=== PATIENT | male | born 1940 | race Caucasian/White ===

== ENCOUNTER 2020-04-04 19:00 | Inpatient (IN) | payer MEDICARE ==
[~2020-04-04] VITALS: Ht 175.3 cm; Wt 138.9 kg
[2020-04-04] MEDS ORDERED: LACT10SO PO (19:18)
[2020-04-04] MEDS ORDERED: FURO20TA4 PO (19:20)
[2020-04-04] MEDS ORDERED: POTA10CA43 PO (19:20)
[2020-04-04] MEDS ORDERED: HYDR25TA4 PO (19:20)
[2020-04-04] MEDS ORDERED: FUROSEMIDE 40 MG/4 ML VIAL ONE (19:25)
--- NOTE | 2020-04-04 19:25 | NUR ---
PT AAOX4. AMBULATORY WITH STEADY GAIT. BIBFAMILY INTIAL COMPLAIN WAS TESTICULAR PAIN. PER ASSESSMENT BILATERAL LEG SWELLING. MD AT BEDSIDE FOR EVAL. PT PLACED ON MONITOR AND PULSE OX. VSS. NO ACUTE DISTRESS NOTED.
--- NOTE | 2020-04-04 19:26 | NUR ---
PT noted that he has been having bilateral pedal edema which is worsening over the past week. He also stated he noticed scrotal edema today.
--- NOTE | 2020-04-04 19:29 | NUR ---
XRAY AT BEDSIDE
[2020-04-04] MEDS ORDERED: FUROSEMIDE 40 MG/4 ML VIAL IV ONE (19:30)
--- NOTE | 2020-04-04 19:30 | NUR ---
DIRECTOR OF PLACEMENT AT BEDSIDE FOR LABS
--- NOTE | 2020-04-04 19:31 | NUR ---
PT MEDICATED. GIVEN 40MG IV PUSH OF LASIX.
--- NOTE | 2020-04-04 19:34 | NUR ---
COVID SWAB SENT TO LAB
--- NOTE | 2020-04-04 19:35 | NUR ---
PT MED LIST UPDATED.
--- NOTE | 2020-04-04 19:43 | NUR ---
PT ON PHONE WITH FAMILY.
[2020-04-04 19:49] LABS: CALCIUM, SERUM 8.8 mg/dL (8.5-10.1); CARBON DIOXIDE 28 mmol/L (21-32); CHLORIDE 105 mmol/L (98-107); CREATININE 1.1 mg/dL (0.6-1.3); GLUCOSE 116 mg/dL (74-106); POTASSIUM 3.8 mmol/L (3.5-5.1); SODIUM SERUM 140 mmol/L (136-145); UREA NITROGEN, BLOOD 17 mg/dL (7-18)
[2020-04-04 19:50] LABS: BASOPHILS # (AUTO) 0.1 /CMM (0.0-0.2); BASOPHILS % (AUTO) 1.2 % (0.0-2.0); EOSINOPHILS % (AUTO) 3.6 % (0.0-6.0); HEMATOCRIT 43 % (39-51); HEMOGLOBIN 14.9 g/dL (13.5-17.5); LYMPHOCYTES # (AUTO) 0.9 /CMM (0.8-4.8); LYMPHOCYTES % (AUTO) 15.4 % (20.0-44.0); MEAN CORPUSCULAR HGB CONC 35 g/dl (31.0-36.0); MEAN CORPUSCULAR VOLUME 117 fL (80-96); MONOCYTES # (AUTO) 0.9 /CMM (0.1-1.30); MONOCYTES % (AUTO) 14.8 % (2.0-12.0); NEUTROPHILS # (AUTO) 3.8 /CMM (1.8-8.9); PLATELET COUNT (AUTO) 96 /CMM (150-450); RED BLOOD CELL COUNT(AUTO) 3.68 MIL/uL (4.5-6.0); WHITE BLOOD COUNT (AUTO) 5.9 K/uL (4.3-11.0)
--- NOTE | 2020-04-04 19:55 | NUR ---
PT AMBULATED TO THE RESTROOM.
[2020-04-04 20:01] LABS: ALANINE AMINOTRANSFERASE 65 U/L (12-78); ALBUMIN 2.1 g/dL (3.4-5.0); ALKALINE PHOSPHATASE 359 U/L (46-116); ASPARTATE AMINOTRANSFERASE 111 U/L (15-37); B-TYPE NATRIURETIC PEPTIDE 48 PG/ML (0-125); BILIRUBIN,DIRECT 3.1 mg/dL (0.0-0.2); BILIRUBIN,TOTAL 5.4 mg/dL (0.2-1.0); TOTAL PROTEIN, SERUM 5.9 g/dL (6.4-8.2)
[2020-04-04 20:34] LABS: BAND % (MANUAL) 2 % (0.0-5.0); EOSINOPHILS % (MANUAL) 1 % (0-4); LYMPHOCYTES % (MANUAL) 9 % (16-48); MONOCYTES % (MANUAL) 8 % (0-11.0); NEUTROPHILS % (MANUAL) 80 (42-76)
--- NOTE | 2020-04-04 20:49 | NUR ---
DR. FANG SPEAKING WITH HOSPITALIST DANIEL MANUEL, DNP
--- NOTE | 2020-04-04 20:50 | NUR ---
ORDERED URINE. URINE SENT TO LAB.
--- NOTE | 2020-04-04 21:04 | NUR ---
BED ASSIGNMENT 325-2
--- NOTE | 2020-04-04 21:15 | NUR ---
MRSA ORDER PLACED.
--- NOTE | 2020-04-04 21:16 | NUR ---
REPORT GIVEN TO WON TEE FOR GORDO
--- NOTE | 2020-04-04 21:18 | NUR ---
PT TRANSFERED TO BED 325-2.
[2020-04-04 21:30] VITALS: BP 158/77
--- NOTE | 2020-04-04 21:30 | NUR ---
MS CIRCULATING NURSE NOTES PATIENT ADMITTED TO UNIT FOR FLUID OVERLOAD. TRANSFERRED VIA GURNEY; ABLE TO AMBULATE INDEPENDENTLY. STABLE ON RA. PATIENT DENIES SOB OR PAIN. IV PRESENT ON LEFT AC, SIZE 18, INTACT & PATENT. EDEMA NOTED ON BILATERAL LEGS AND FEET; PATIENT STATES HE NOTICED SWELLING IN HIS TESTICLES THIS MORNING. PATIENT REFUSED SKIN ASSESSMENT OF PERINEAL AREA; PHOTOS TAKEN OF B/L LEGS AND FEET ONLY. BELONGINGS LIST REVIEWED WITH PATIENT AND PLACED IN CHART. ADMISSION ORDERS PLACED BY DANIEL MANUEL. SAFETY MEASURES IN PLACE AND PATIENT'S NEEDS MET. WILL CONTINUE TO MONITOR.
[2020-04-04 21:40] VITALS: BP 158/77
--- NOTE | 2020-04-04 21:50 | NUR ---
MS RN NOTES PATIENT SENT TO RADIOLOGY FOR CT SCAN OF ABDOMEN
[2020-04-04 21:53] LABS: APPEARANCE,URINE CLEAR (CLEAR); BILIRUBIN,URINE NEGATIVE (NEGATIVE); BLOOD, URINE NEGATIVE Ery/uL (NEGATIVE); COLOR,URINE YELLOW (YELLOW); KETONES,URINE NEGATIVE (NEGATIVE); LEUKOCYTE ESTERASE ,URINE NEGATIVE (NEGATIVE); NITRITE, URINE NEGATIVE (NEGATIVE); PROTEIN,URINE NEGATIVE (NEGATIVE); UGLUCOSE NEGATIVE (NEGATIVE); UROBILINOGEN,URINE 0.2 EU/dL (0.2)
[2020-04-04] MEDS ORDERED: ALBUMIN 25% 12.5 GM/50 ML BOTTLE IV STA (21:56)
[2020-04-04] MEDS ORDERED: BUMETANIDE INJ 8 MG in IV NS 0.9% 48 ML IV ONE (22:00)
[2020-04-04] MEDS ORDERED: MAGNESIUM HYDROXIDE 30 ML UDC PO PRN (22:00)
[2020-04-04] MEDS ORDERED: Z GUARD REMEDY 2 OZ OINT TP PRN (22:00)
[2020-04-04] MEDS ORDERED: MAG HYDROX/AL HYDROX/SIMETH 30 ML UDC PO PRN (22:00)
[2020-04-04] MEDS ORDERED: POTASSIUM CHLORIDE 20 MEQ TAB.PRT.SR PO ONE (22:00)
[2020-04-04] MEDS ORDERED: ZOLPIDEM TARTRATE 5 MG TABLET PO PRN (22:00)
[2020-04-04] MEDS ORDERED: HYDROCODONE/APAP 5/325MG 1 EACH TABLET PO PRN (22:00)
[2020-04-04] MEDS ORDERED: ACETAMINOPHEN 325 MG TABLET PO PRN (22:00)
[2020-04-04] MEDS ORDERED: ONDANSETRON HCL/PF 4 MG/2 ML VIAL IVP PRN (22:00)
[2020-04-04] MEDS ORDERED: LACTULOSE 10 G/15 ML UDC (PYXIS) PO PRN (22:00)
--- NOTE | 2020-04-04 22:10 | NUR ---
MS RN NOTES SCHEDULED ALBUMIN IV NOT IN STOCK ON UNIT. AWAITING FOR NURSING INVESTIGATIVE REPORTER TO RETRIEVE MEDICATION IN NIGHT LOCKER.
[2020-04-04 22:11] LABS: CREATININE, URINE 46.4 MG/DL (30.0-125.0); URINE TOTAL PROTEIN 3.6 mg/dL (0-11.9)
[2020-04-04] MEDS ORDERED: ALBUMIN 25% 200 ML IV ONE (22:16)
[2020-04-04] MEDS: RIFAXIMIN 550 MG TABLET PO SCH (22:45)
[2020-04-04] MEDS: SPIRONOLACTONE 25 MG TABLET PO SCH (22:45)
[2020-04-04] MEDS ORDERED: BUMETANIDE INJ 0.25 MG/ML VIAL ONE ×2 (22:59→23:04)
--- NOTE | 2020-04-04 23:00 | NUR ---
MS RN NOTES ALBUMIN BOLUS X 4 BOTTLES COMPLETED. BUMEX 8MG IV RETRIEVED BY CHARGE NURSE FROM [facility]. MANUAL BARCODE UTILIZED TO SCAN THROUGH EMAR.
--- NOTE | 2020-04-05 07:08 | NUR ---
MS RN OPENING NOTES RECEIVED PATIENT AWAKE IN BED. AOX4. NO SOB NOTED, NO C/O PAIN AT THIS TIME. NO S/S OF ANY ACUTE RESPIRATORY DISTRESS; BREATHING IS EVEN AND UNLABORED. PT ABLE TO MAKE NEEDS KNOWN. IV ACCESS IN LAC G#18, INTACT AND PATENT. SAFETY PRECAUTIONS IN PLACE. PT REFUSED NURSE FROM ASSESSING TESTICULAR SWELLING. SAFETY PRECAUTIONS IN PLACE. BED IN LOWEST LOCKED POSITION, BED ALARM ALARM ON, SIDE RAILS, CALL LIGHT WITHIN REACH. WILL CONTINUE TO MONITOR.
[2020-04-05 07:36] LABS: BASOPHILS # (AUTO) 0.1 /CMM (0.0-0.2); BASOPHILS % (AUTO) 1.4 % (0.0-2.0); EOSINOPHILS % (AUTO) 5.4 % (0.0-6.0); HEMATOCRIT 39 % (39-51); LYMPHOCYTES # (AUTO) 1.1 /CMM (0.8-4.8); LYMPHOCYTES % (AUTO) 22.2 % (20.0-44.0); MEAN CORPUSCULAR HGB CONC 34 g/dl (31.0-36.0); MEAN CORPUSCULAR VOLUME 117 fL (80-96); MONOCYTES # (AUTO) 0.7 /CMM (0.1-1.30); MONOCYTES % (AUTO) 14.5 % (2.0-12.0); NEUTROPHILS # (AUTO) 2.7 /CMM (1.8-8.9); NEUTROPHILS % (AUTO) 56.5 % (43.0-81.0); PLATELET COUNT (AUTO) 76 /CMM (150-450); WHITE BLOOD COUNT (AUTO) 4.8 K/uL (4.3-11.0)
--- NOTE | 2020-04-05 07:45 | NUR ---
MS RN CLOSING NOTES PATIENT AWAKE IN BED. A/OX4. STABLE ON RA. DENIES SOB OR PAIN. IV PRESENT ON LEFT AC, SIZE 18, INTACT & PATENT, HEP LOCKED; PATIENT REQUESTED TO BE DISCONNECTED FROM BUMEX 8MG IV DRIP UNTIL AFTER BREAKFAST; ONE HOUR REMAINING UNTIL COMPLETED; DAY SHIFT NURSE AWARE. SAFETY MEASURES IN PLACE AND PATIENT'S NEEDS MET. BED LOCKED, HOB ELEVATED, SIDE RAILS X2, CALL LIGHT WITHIN REACH. ENDORSE TO DAY SHIFT NURSE PLAN OF CARE.
[2020-04-05 08:03] VITALS: BP 138/76
[2020-04-05] MEDS: SPIRONOLACTONE 25 MG TABLET PO SCH (08:23)
[2020-04-05] MEDS ORDERED: ENOXAPARIN SODIUM 40 MG/0.4 ML DISP.SYRIN SQ SCH (08:30)
[2020-04-05 09:09] LABS: ALBUMIN 2.5 g/dL (3.4-5.0); CALCIUM, SERUM 8.6 mg/dL (8.5-10.1); MAGNESIUM 1.8 mg/dL (1.8-2.4); PHOSPHORUS 2.6 mg/dL (2.5-4.9); POTASSIUM 3.1 mmol/L (3.5-5.1); TOTAL PROTEIN, SERUM 5.6 g/dL (6.4-8.2)
[2020-04-05 09:18] LABS: EOSINOPHILS % (MANUAL) 5 % (0-4); LYMPHOCYTES % (MANUAL) 20 % (16-48); MONOCYTES % (MANUAL) 11 % (0-11.0); NEUTROPHILS % (MANUAL) 64 (42-76)
[2020-04-05] MEDS: FUROSEMIDE 100 MG/10 ML VIAL IV SCH ×3 (09:51→17:42)
[2020-04-05] MEDS: RIFAXIMIN 550 MG TABLET PO SCH ×2 (09:51→20:14)
--- NOTE | 2020-04-05 13:28 | NUR ---
PT'S POTASSIUM LEVEL OF 3.1, DOCTOR DANIEL MADE AWARE. AWAITING ORDERS. WILL CONTINUE TO MONITOR
[2020-04-05 16:23] VITALS: BP 131/74
[2020-04-05] MEDS ORDERED: POTASSIUM CHLORIDE 20 MEQ TAB.PRT.SR PO ONE (17:30)
--- NOTE | 2020-04-05 19:10 | NUR ---
RN medsurg opening notes Pt is resting in bed comfortably. Pt is alert and orientedX4. Breathing is even and unlabored. No SOB. No S/S of distress noted. IV sites at LAc# 18 is clean, intact, flush without resistance and SL. Noted edema on bilateral lower legs and feet. Pt refused to have skin assessment on perineal area. Pt is able to ambulate with a steady gait. Safety precautions is maintained. Bed at low position, brakes locked, side rails upX2 and call light is within reach. Will continue to monitor.
--- NOTE | 2020-04-05 19:12 | NUR ---
MS RN CLOSING NOTES PATIENT AWAKE IN BED. PATIENT REMAINED STABLE THROUGHOUT SHIFT. PT KEPT CLEAN AND DRY. ALL CARE, NEEDS, TREATMENT AND MEDICATIONS ADMINISTERED ANTICIPATED PER ORDER. SAFETY PRECAUTIONS IN PLACE. BED IN LOWEST LOCKED POSITION, BED ALARM ALARM ON, SIDE RAILS, CALL LIGHT WITHIN REACH. WILL ENDORSE TO DIRECTOR RECREATION NURSE FOR GORDO
--- NOTE | 2020-04-05 19:36 | NUR ---
PT'S POTASSIUM LEVEL OF 3.1, DOCTOR SHRADDHA GARCIA MADE AWARE. RECEIVED ORDERS TO ADMINISTER KDUR 40MEQ PO ONCE. ORDERS CARRIED OUT. WILL CONTINUE TO MONITOR
[2020-04-05 20:00] VITALS: BP 115/66
[2020-04-05 20:11] VITALS: BP 115/66
[2020-04-06 04:03] VITALS: BP 105/65
--- NOTE | 2020-04-06 07:00 | NUR ---
RN medsurg closing notes Pt is resting in bed comfortably. Pt is alert and orientedX4. Breathing is even and unlabored. No SOB. No S/S of distress noted. IV sites at LAc# 18 is clean, intact, flush without resistance and SL. VS is stable. Routine meds were given as ordered. Kept Pt clean, dry and comfortable. All needs met and attended. Safety precautions is maintained. Bed at low position, brakes locked, side rails upX2 and call light is within reach. Will endorse to morning nurse for GORDO.
[2020-04-06 08:00] VITALS: BP 117/63
--- NOTE | 2020-04-06 08:00 | NUR ---
m/s mortgage coordinator: initial assessment received pt in bed awake, a/ox4; ambulatory. generalized edema (anasarca). no c/o pain or any discomfort. pt very private, doesn't want his scrotal assessed. no distress noted. instructed to call for assistance. will continue to monitor.
[2020-04-06 08:22] LABS: EOSINOPHILS % (AUTO) 6.7 % (0.0-6.0); HEMATOCRIT 38 % (39-51); HEMOGLOBIN 13.1 g/dL (13.5-17.5); LYMPHOCYTES # (AUTO) 1.1 /CMM (0.8-4.8); LYMPHOCYTES % (AUTO) 27.1 % (20.0-44.0); MEAN CORPUSCULAR HGB CONC 34 g/dl (31.0-36.0); MEAN CORPUSCULAR VOLUME 118 fL (80-96); MONOCYTES # (AUTO) 0.7 /CMM (0.1-1.30); MONOCYTES % (AUTO) 16.8 % (2.0-12.0); NEUTROPHILS % (AUTO) 48.4 % (43.0-81.0); PLATELET COUNT (AUTO) 71 /CMM (150-450); RED BLOOD CELL COUNT(AUTO) 3.24 MIL/uL (4.5-6.0); WHITE BLOOD COUNT (AUTO) 4.2 K/uL (4.3-11.0)
[2020-04-06 08:29] LABS: ALBUMIN 2.1 g/dL (3.4-5.0); BILIRUBIN,TOTAL 5.2 mg/dL (0.2-1.0); CALCIUM, SERUM 8.5 mg/dL (8.5-10.1); CREATININE 1.1 mg/dL (0.6-1.3); MAGNESIUM 1.8 mg/dL (1.8-2.4); PHOSPHORUS 3.3 mg/dL (2.5-4.9); TOTAL PROTEIN, SERUM 5.1 g/dL (6.4-8.2)
--- NOTE | 2020-04-06 08:30 | NUR ---
m/s mixer operator helper hot metal: notes kyle goodwin (niece) called and wanting to have an update. place her on hold. pt is awake, a/ox4 and made aware. transfer call to pt and spoke to her niece. after conversation, ask pt she is not on the list and i can't release and information due to hippa. pt verbalized understanding. pt inform me that staff can release information when she calls. received another call from her saying this is my 3rd time calling and you are the only nurse that giving me problem. informed her that i need to ask her uncle for permission because camilo goodwin (niece) is not listed on his file, stated, "i should be on the list, i have power of criminal attorney." while given her some updates, i couldn't here the last conversation, then she says i'm done talking to you then she hanged up.
[2020-04-06] MEDS: RIFAXIMIN 550 MG TABLET PO SCH ×2 (08:41→20:55)
[2020-04-06] MEDS: SPIRONOLACTONE 25 MG TABLET PO SCH (08:41)
--- NOTE | 2020-04-06 08:45 | NUR ---
m/s banana ripening room supervisor: notes fabian (nsg supervisor vat house) called and ask what happened. i informed her that she is manipulating the whole conversation, saying it's her 3rd time calling which is not true, i received 2 calls from her. the first call i transferred to pt and 2nd call i give her an update, then she hanged up when i didn't hear the last conversation. informed rn supervisor vat house that throughout conversation, she was rude and she didn't want me to hear explain why i am protecting pt's privacy.
[2020-04-06] MEDS: POTASSIUM CHLORIDE 20 MEQ TAB.PRT.SR PO SCH ×5 (09:28→14:22)
[2020-04-06] MEDS: FUROSEMIDE 100 MG/10 ML VIAL IV SCH ×3 (09:47→17:07)
[2020-04-06 10:16] LABS: EOSINOPHILS % (MANUAL) 8 % (0-4); LYMPHOCYTES % (MANUAL) 20 % (16-48); MONOCYTES % (MANUAL) 16 % (0-11.0); NEUTROPHILS % (MANUAL) 56 (42-76)
--- NOTE | 2020-04-06 11:30 | NUR ---
m/s longwall headgate operator: md visit [facility] and updated pt plan of care. per acnp, will start pt on antibiotic for ble cellulitis. all questions answered by acnp.
--- NOTE | 2020-04-06 12:00 | NUR ---
m/s gym attendant: notes cooper jimenez (acnp) here and address vte=2, per acnp okay with dvt pump, but no chemical.
--- NOTE | 2020-04-06 14:00 | NUR ---
m/s fuels engineer: notes resting quietly in bed. no distress noted. will continue to monitor.
[2020-04-06] MEDS ORDERED: FEE PK DOSING 1 MIN EA MC ONE (15:01)
[2020-04-06] MEDS: VANCOMYCIN 1.25 GM in IV D5W 250 ML IV SCH (15:26)
--- NOTE | 2020-04-06 15:26 | NUR ---
m/s outdoor advertising leasing agent: notes started on vancomycin 1.25g ivpb by rn at this time. instructed to call for assistance. will continue to monitor.
[2020-04-06 16:00] VITALS: BP 154/83
--- NOTE | 2020-04-06 17:30 | NUR ---
m/s signal inspector: notes vancomycin iv antibiotic completed without a/r noted. needs attended. pt having dinner. instructed to call for assistance.
--- NOTE | 2020-04-06 19:00 | NUR ---
m/s manager zone: notes report given to matt davis) for continuity of care.
[2020-04-06 20:00] VITALS: BP 142/57
--- NOTE | 2020-04-06 20:00 | NUR ---
MS RN OPENING NOTES RECEIVED PATIENT IN BED, AWAKE, CONSCIOUS, COOPERATIVE, BREATHING AT ROOM AIR, UNLABORED BREATHING, NO SIGNS OF RESPIRATORY DISTRESS, IV ACCESS LAC #18G, BLE SWELLING AND REDNESS, SIDE RAILS UP.
[2020-04-07] MEDS: VANCOMYCIN 1.25 GM in IV D5W 250 ML IV SCH ×2 (03:00→14:44)
--- NOTE | 2020-04-07 06:56 | NUR ---
MS RN CLOSING NOTES ENDORSED PATIENT IN BED, AWAKE, CONSCIOUS, COOPERATIVE, BREATHING AT ROOM AIR, UNLABORED BREATHING, NO SIGNS OF RESPIRATORY DISTRESS, IV ACCESS LAC #18G, NO REDNESS OR INFILTRATION NOTED, BLE SWELLING AND REDNESS, SIDE RAILS UP FOR SAFETY, DUE MEDS GIVEN.
--- NOTE | 2020-04-07 07:30 | NUR ---
RN Opening note Received patient in bed, AO x 4 able to responds all stimuli. Does no c/o pain or distress. Skin is warm to touch, kept clean/dry, intact IV site. Respiratory even and unlabored in room air. Keep bed in lock with elevated HOB for ensure airway and aspiration precaution. Call light within reach, will continue to monitor.
[2020-04-07 08:00] VITALS: BP 160/57
[2020-04-07 08:07] LABS: AFP, TUMOR MARKER 1.5 ng/mL (0.0-8.3)
[2020-04-07 08:08] LABS: BASOPHILS # (AUTO) 0.1 /CMM (0.0-0.2); EOSINOPHILS % (AUTO) 6.4 % (0.0-6.0); HEMATOCRIT 41 % (39-51); HEMOGLOBIN 14.1 g/dL (13.5-17.5); LYMPHOCYTES # (AUTO) 1.1 /CMM (0.8-4.8); LYMPHOCYTES % (AUTO) 23.4 % (20.0-44.0); MEAN CORPUSCULAR HGB CONC 34 g/dl (31.0-36.0); MEAN CORPUSCULAR VOLUME 117 fL (80-96); MONOCYTES # (AUTO) 0.7 /CMM (0.1-1.30); MONOCYTES % (AUTO) 14.7 % (2.0-12.0); NEUTROPHILS # (AUTO) 2.7 /CMM (1.8-8.9); NEUTROPHILS % (AUTO) 54.5 % (43.0-81.0); PLATELET COUNT (AUTO) 74 /CMM (150-450); RED BLOOD CELL COUNT(AUTO) 3.52 MIL/uL (4.5-6.0); WHITE BLOOD COUNT (AUTO) 4.9 K/uL (4.3-11.0)
[2020-04-07 08:17] LABS: ALBUMIN 2.2 g/dL (3.4-5.0); BILIRUBIN,DIRECT 2.5 mg/dL (0.0-0.2); BILIRUBIN,TOTAL 5.1 mg/dL (0.2-1.0); CALCIUM, SERUM 8.8 mg/dL (8.5-10.1); CREATININE 1.1 mg/dL (0.6-1.3); MAGNESIUM 1.9 mg/dL (1.8-2.4); PHOSPHORUS 3.2 mg/dL (2.5-4.9); POTASSIUM 3.6 mmol/L (3.5-5.1); TOTAL PROTEIN, SERUM 5.5 g/dL (6.4-8.2)
[2020-04-07 08:57] LABS: BAND % (MANUAL) 2 % (0.0-5.0); EOSINOPHILS % (MANUAL) 5 % (0-4); LYMPHOCYTES % (MANUAL) 29 % (16-48); MONOCYTES % (MANUAL) 11 % (0-11.0); NEUTROPHILS % (MANUAL) 53 (42-76)
[2020-04-07] MEDS: SPIRONOLACTONE 25 MG TABLET PO SCH (09:09)
[2020-04-07] MEDS: RIFAXIMIN 550 MG TABLET PO SCH ×2 (09:09→22:30)
[2020-04-07 16:00] VITALS: BP 132/53
--- NOTE | 2020-04-07 18:13 | NUR ---
RN Closing note Patient in bed comfortably, no s/s of distress observed, skin is warm to touch, kept clean/dry, intact IV site. Respiratory even and unlabored with oxygen. Keep bed in lock with elevated HOB for ensure airway and aspiration precaution. Pt done MRCP, still waiting ERCP by Dr. Alexandra. Call light within reach, will endorse night time babysitter. Addendum: 04/07/20 at 1825 by BRIANNA MAYES RN Error
--- NOTE | 2020-04-07 18:25 | NUR ---
RN Closing note Patient in bed comfortably, no s/s of distress observed, skin is warm to touch, kept clean/dry, intact IV site. Respiratory even and unlabored in room air. Keep bed in lock with elevated HOB for ensure airway and aspiration precaution. Pt done MRCP, still waiting ERCP by Dr. Alexandra. Call light within reach, will endorse pony edger.
[2020-04-07 20:00] VITALS: BP 129/68
--- NOTE | 2020-04-08 06:56 | NUR ---
MS RN NOTES AWAKE & RESPONSIVE. NOT IN ANY DISTRESS. NO SOB NOTED. DENIES ANY PAIN OR DISCOMFORT AT THIS TIME. WITH IV-HL PATENT & INTACT. MONITORED ACCORDINGLY. CALL LIGHT WITHIN REACH. BED IN LOWEST POSITION. SR UP X2 FOR SAFETY. WILL ENDORSE TO NEXT SHIFT.
--- NOTE | 2020-04-08 07:15 | NUR ---
MS RN NOTES RECEIVED PATIENT IN BED, ALERT AND AWAKE ORIENTED X4 WITH EPISODES OF FORGETFULNESS. NO SOB. HOB ELEVATED. DENIES ANY C/O PAIN NOR DISCOMFORT AT THIS TIME. SL LAC #18 INTACT AND PATENT. BED IN LOWEST POSITION, LOCKED. BED ALARM ON. CALL LIGHT WITHIN REACH. ABLE TO VERBALIZE NEEDS.
[2020-04-08 07:19] LABS: CALCIUM, SERUM 8.6 mg/dL (8.5-10.1); PHOSPHORUS 2.9 mg/dL (2.5-4.9); POTASSIUM 3.5 mmol/L (3.5-5.1)
[2020-04-08 07:26] LABS: BASOPHILS # (AUTO) 0.1 /CMM (0.0-0.2); BASOPHILS % (AUTO) 1.4 % (0.0-2.0); EOSINOPHILS % (AUTO) 8.2 % (0.0-6.0); HEMATOCRIT 42 % (39-51); HEMOGLOBIN 14.2 g/dL (13.5-17.5); LYMPHOCYTES # (AUTO) 1.2 /CMM (0.8-4.8); LYMPHOCYTES % (AUTO) 27.3 % (20.0-44.0); MEAN CORPUSCULAR HGB CONC 34 g/dl (31.0-36.0); MEAN CORPUSCULAR VOLUME 118 fL (80-96); MONOCYTES # (AUTO) 0.5 /CMM (0.1-1.30); MONOCYTES % (AUTO) 12.5 % (2.0-12.0); NEUTROPHILS # (AUTO) 2.2 /CMM (1.8-8.9); NEUTROPHILS % (AUTO) 50.6 % (43.0-81.0); PLATELET COUNT (AUTO) 73 /CMM (150-450); RED BLOOD CELL COUNT(AUTO) 3.53 MIL/uL (4.5-6.0); WHITE BLOOD COUNT (AUTO) 4.3 K/uL (4.3-11.0)
[2020-04-08 07:34] LABS: BILIRUBIN,DIRECT 2.5 mg/dL (0.0-0.2); BILIRUBIN,TOTAL 5.1 mg/dL (0.2-1.0)
[2020-04-08 08:00] VITALS: BP 134/71
[2020-04-08] MEDS: RIFAXIMIN 550 MG TABLET PO SCH ×2 (08:34→21:15)
[2020-04-08] MEDS: VITAMINS A AND D 56.7 GM TUBE TP SCH (08:34)
[2020-04-08] MEDS: SPIRONOLACTONE 25 MG TABLET PO SCH (08:35)
[2020-04-08 08:58] LABS: BAND % (MANUAL) 1 % (0.0-5.0); EOSINOPHILS % (MANUAL) 9 % (0-4); LYMPHOCYTES % (MANUAL) 23 % (16-48); MONOCYTES % (MANUAL) 9 % (0-11.0); NEUTROPHILS % (MANUAL) 58 (42-76)
--- NOTE | 2020-04-08 18:30 | NUR ---
MS RN NOTES PATIENT RESTING COMFORTABLY IN BED. ASLEEP BUT ARUOSABLE TO VERBAL AND TACTILE STIMULI. NO S/S OF RESPIRATORY DISTRESS. HOB ELEVATED. DENIES ANY C/O PAIN NOR DISCOMFORT AT THIS TIME. SL LAC #18 INTACT AND PATENT. BED IN LOWEST POSITION, LOCKED. BED ALARM ON. CALL LIGHT WITHIN REACH. ABLE TO VERBALIZE NEEDS. IN NO APPARENT DISTRESS.
[2020-04-08 20:00] VITALS: BP 142/76
[2020-04-09 06:33] LABS: BASOPHILS # (AUTO) 0.1 /CMM (0.0-0.2); BASOPHILS % (AUTO) 1.4 % (0.0-2.0); EOSINOPHILS % (AUTO) 8.4 % (0.0-6.0); HEMATOCRIT 39 % (39-51); HEMOGLOBIN 13.3 g/dL (13.5-17.5); LYMPHOCYTES # (AUTO) 1.2 /CMM (0.8-4.8); LYMPHOCYTES % (AUTO) 26.2 % (20.0-44.0); MEAN CORPUSCULAR HGB CONC 34 g/dl (31.0-36.0); MEAN CORPUSCULAR VOLUME 117 fL (80-96); MONOCYTES # (AUTO) 0.7 /CMM (0.1-1.30); MONOCYTES % (AUTO) 14.7 % (2.0-12.0); NEUTROPHILS # (AUTO) 2.3 /CMM (1.8-8.9); NEUTROPHILS % (AUTO) 49.3 % (43.0-81.0); PLATELET COUNT (AUTO) 72 /CMM (150-450); RED BLOOD CELL COUNT(AUTO) 3.34 MIL/uL (4.5-6.0); WHITE BLOOD COUNT (AUTO) 4.6 K/uL (4.3-11.0)
[2020-04-09 06:48] LABS: BILIRUBIN,DIRECT 2.2 mg/dL (0.0-0.2); BILIRUBIN,TOTAL 4.4 mg/dL (0.2-1.0); TOTAL PROTEIN, SERUM 5.1 g/dL (6.4-8.2)
[2020-04-09 07:02] LABS: CALCIUM, SERUM 8.4 mg/dL (8.5-10.1); CREATININE 1.1 mg/dL (0.6-1.3); MAGNESIUM 2.1 mg/dL (1.8-2.4); PHOSPHORUS 2.3 mg/dL (2.5-4.9); POTASSIUM 3.6 mmol/L (3.5-5.1)
--- NOTE | 2020-04-09 07:23 | NUR ---
MS RN NOTES RECEIVED PATIENT IN BED ASLEEP, AROUSABLE TO VERBAL WITH EPISODES OF FORGETFULNESS. NO SOB. HOB ELEVATED. DENIES ANY C/O PAIN NOR DISCOMFORT AT THIS TIME. SL LAC #18 INTACT AND PATENT. BLE EXT ELEVATED WITH PILLOWS. BED IN LOWEST POSITION, LOCKED. BED ALARM ON. CALL LIGHT WITHIN REACH. ABLE TO VERBALIZE NEEDS.
[2020-04-09 08:00] VITALS: BP 140/75
[2020-04-09] MEDS: RIFAXIMIN 550 MG TABLET PO SCH ×2 (08:51→21:20)
[2020-04-09] MEDS: VITAMINS A AND D 56.7 GM TUBE TP SCH (08:51)
[2020-04-09] MEDS: SPIRONOLACTONE 25 MG TABLET PO SCH (08:51)
[2020-04-09] MEDS: NEUTRA PHOS 1 POWD.PACKET PO SCH ×2 (08:54→16:38)
[2020-04-09 10:42] LABS: EOSINOPHILS % (MANUAL) 11 % (0-4); LYMPHOCYTES % (MANUAL) 20 % (16-48); MONOCYTES % (MANUAL) 11 % (0-11.0); MYELOCYTES % 1 % (0-0); NEUTROPHILS % (MANUAL) 57 (42-76)
[2020-04-09] MEDS ORDERED: ANESTHESIA TRAY IN PYXIS 1 EA TRAY MC ONE (15:01)
[2020-04-09 16:00] VITALS: BP 137/73
--- NOTE | 2020-04-09 18:36 | NUR ---
MS RN NOTES PATIENT RESTING COMFORTABLY IN BED, WATCHING TV. NO S/S OF RESPIRATORY DISTRESS. HOB ELEVATED. DENIES ANY C/O PAIN NOR DISCOMFORT AT THIS TIME. SL LAC #18 INTACT AND PATENT. BLE EXT ELEVATED WITH PILLOWS. BED IN LOWEST POSITION, LOCKED. BED ALARM ON. CALL LIGHT WITHIN REACH. ABLE TO VERBALIZE NEEDS. IN NO APPARENT DISTRESS.
--- NOTE | 2020-04-09 19:01 | NUR ---
MS RN OPENING NOTES: RECEIVED PATIENT IN BED, A/O X4, NO SOB NOTED. NO COMPLAIN OF PAIN. CALL LIGHT WITHIN REACH. BED IN LOWEST AND LOCKED POSITION. HOB ELEVATED. PATIENT REMINDED OF NPO POST MN. CONSENT ATTACHED TO THE CHART.PER REPORT, NIECE AWARE OF THE SCHEDULED ERCP TOMORROW. NPO POST MN SIGN ON THE DOOR. RADHA DUTTON AWARE.
[2020-04-09 20:00] VITALS: BP 118/90
--- NOTE | 2020-04-09 20:19 | NUR ---
RECEIVED A CALL FROM THE ANESTHESIOLOGIST DR YASMANI MCALLISTER: PATIENT'S INR IS ELEVATED, AND HE SUGGESTED TO HAVE 2 UNITS OF FFP TO BE GIVEN TONIGHT, RELAYED TO TAWANDA RAE.
--- NOTE | 2020-04-09 22:48 | NUR ---
CALLED THE BLOOD BANK AND TALKED TO SOC FOR THE FFP TO BE THAWED NOW. HE WILL CALL WHEN THEY'RE READY.
[2020-04-10] VITALS (11 sets, daily range): BP systolic 116–131; BP diastolic 52–84
--- NOTE | 2020-04-10 | NUR ---
PATIENT IS NOW NPO.
--- NOTE | 2020-04-10 | NUR ---
CALLED THE BLOOD BANK, FFP WILL BE READY AT 10-15 MINS.
--- NOTE | 2020-04-10 00:40 | NUR ---
FRESH FROZEN PLASMA STARTED, PATIENT IS AWAKE, A/O X4. V/S TAKEN AND RECORDED, AFEBRILE, VITALS STABLE. WILL MONITOR V/S WHILE ON TRANSFUSION.
--- NOTE | 2020-04-10 01:20 | NUR ---
NO BLOOD REACTIONS NOTED. PATIENT IS AWAKE. WILL CONTINUE TO MONITOR.
--- NOTE | 2020-04-10 01:46 | NUR ---
PLASMA TRANSFUSION FINISHED, NO REACTIONS NOTED. PATIENT IS AWAKE, A/O X4. NO COMPLAIN OF PAIN. PATIENT IN BED.
--- NOTE | 2020-04-10 02:46 | NUR ---
ONE HOUR POST PLASMA TRANSFUSION, V/S TAKEN AND RECORDED VITALS STABLE, NO REACTIONS NOTED, VOIDED. AFEBRILE.
--- NOTE | 2020-04-10 03:09 | NUR ---
SECOND UNIT OF FFP STARTED, V.S TAKEN AND RECORDED,AFEBRILE, VITALS WNL. NO COMPLAIN OF PAIN. NO SOB NOTED. PATIENT IS AWAKE, A/O X4, COMFORTABLE. CALL LIGHT WITHIN REACH. WILL CONTINUE TO MONITOR.
--- NOTE | 2020-04-10 03:24 | NUR ---
NO BLOOD TRANSFUSION REACTIONS NOTED. PATIENT IS COMFORTABLE, LITTLE SLEEPY.
--- NOTE | 2020-04-10 04:30 | NUR ---
SECOND UNIT OF FFP TRANSFUSION IS FINISHED, PATIENT IS AWAKE, A/O X4, NO REACTIONS NOTED. PATIENT IS COMFORTABLE. NO COMPLAIN OF PAIN. CALL LIGHT WITHIN REACH. BED IN LOWEST AND LOCKED POSITION.
--- NOTE | 2020-04-10 05:49 | NUR ---
MS RN CLOSING NOTES: PATIENT IN BED AWAKE A/O X4. NO COMPLAIN OF PAIN. NO SOB NOTED. NO POST BLOOD TRANSFUSION REACTIONS. PATIENT IS COMFORTABLE. VITALS STABLE. AFEBRILE. CALL LIGHT WITHIN REACH. BED ALARM ON. BED IN LOWEST AND LOCKED POSITION. NPO. AMBULATORY PATIENT IS STEADY WITH ONLY STANDBY ASSIST.
[2020-04-10 06:42] LABS: BASOPHILS % (AUTO) 1.1 % (0.0-2.0); EOSINOPHILS % (AUTO) 8.6 % (0.0-6.0); HEMATOCRIT 35 % (39-51); LYMPHOCYTES # (AUTO) 1.2 /CMM (0.8-4.8); LYMPHOCYTES % (AUTO) 29.6 % (20.0-44.0); MEAN CORPUSCULAR HGB CONC 34 g/dl (31.0-36.0); MEAN CORPUSCULAR VOLUME 118 fL (80-96); MONOCYTES # (AUTO) 0.6 /CMM (0.1-1.30); MONOCYTES % (AUTO) 15.4 % (2.0-12.0); NEUTROPHILS # (AUTO) 1.9 /CMM (1.8-8.9); NEUTROPHILS % (AUTO) 45.3 % (43.0-81.0); PLATELET COUNT (AUTO) 63 /CMM (150-450); RED BLOOD CELL COUNT(AUTO) 2.97 MIL/uL (4.5-6.0); WHITE BLOOD COUNT (AUTO) 4.2 K/uL (4.3-11.0)
[2020-04-10 07:16] LABS: BILIRUBIN,DIRECT 2.1 mg/dL (0.0-0.2); BILIRUBIN,TOTAL 4.9 mg/dL (0.2-1.0); CALCIUM, SERUM 8.5 mg/dL (8.5-10.1); MAGNESIUM 2.1 mg/dL (1.8-2.4); PHOSPHORUS 2.8 mg/dL (2.5-4.9); POTASSIUM 3.5 mmol/L (3.5-5.1); TOTAL PROTEIN, SERUM 5.2 g/dL (6.4-8.2)
--- NOTE | 2020-04-10 08:00 | NUR ---
MS RN OPENING NOTES Received Patient asleep and resting in bed. A/O x 4 with episodes of forgetfulness. VS stable with no acute distress. Breathing even and unlabored on room air with no respiratory distress. Denies pain. No signs and symptoms of pain. NPO precautions in place. 22g PIV on Right Hand clean, intact, patent and flushing well. Safety precautions in place. Bed locked and set to lowest position with side rails x 2 up. All needs rendered at this time. Call light within reach. Will continue to monitor.
--- NOTE | 2020-04-10 08:30 | NUR ---
MS RN NOTES Patient taken to OR for ERCP at this time. Patient in stable condition.
[2020-04-10] MEDS ORDERED: IOHEXOL 240MG/ML 100 ML IV ONE (08:35)
[2020-04-10] MEDS ORDERED: INDOMETHACIN 50 MG SUPP.RECT ONE (08:35)
[2020-04-10] MEDS ORDERED: FENTANYL PF 100MCG/2ML AMPUL ONE (08:36)
[2020-04-10] MEDS ORDERED: ROCURONIUM BROMIDE 50 MG/5 ML ONE (08:36)
[2020-04-10] MEDS ORDERED: SUCCINYLCHOLINE CHLORIDE 20 MG/ML VIAL ONE (08:36)
[2020-04-10] MEDS ORDERED: IOHEXOL 0 ML IV ONE (08:52)
[2020-04-10] MEDS: SPIRONOLACTONE 25 MG TABLET PO SCH (09:00)
[2020-04-10] MEDS: RIFAXIMIN 550 MG TABLET PO SCH (09:00)
[2020-04-10] MEDS: VITAMINS A AND D 56.7 GM TUBE TP SCH (09:00)
[2020-04-10] MEDS ORDERED: RIFA550T PO (15:38)
[2020-04-10] MEDS ORDERED: SPIR25TA6 PO (15:38)
--- NOTE | 2020-04-10 17:30 | NUR ---
MS ASSISTANT GM OF CONTENT & DELIVERY NOTES Patient discharged for home at this time. A/O x 4 with episodes of forgetfulness. Patient in stable condition. VS stable with no acute distress. Breathing even and unlabored on room air with no respiratory distress. Denies pain. No signs and symptoms of pain. Skin intact. Refused skin assessment pictures. Medication reconciliation and discharge orders reviewed and explained to Patient. Patient verbalized understanding. All belongings with Patient. Patient will follow up with Ibrahima OKEEFE, Kristopher OKEEFE, and PCP as ordered. Patient picked up by Hilario Guillaume).
== END 2020-04-10 17:30 | disposition home health service (06) | DRG 432 ==
LOC: ER 19:01 → MED 21:05 → MEDSG2 04-07 20:51
PROVIDERS: ADMIT Nurse Practitioner Acute Care; ATTEND Registered Nurse
PROC: 30233K1 Transfusion of Nonautologous Frozen Plasma into Peripheral Vein, Percutaneous Approach (ICD-10-PCS; principal; 2020-04-09)
PROC: 0FJB8ZZ Inspection of Hepatobiliary Duct, Via Natural or Artificial Opening Endoscopic (ICD-10-PCS; 2020-04-10)
DX: K74.60 Unspecified cirrhosis of liver (principal); E43 Unspecified severe protein-calorie malnutrition; D68.4 Acquired coagulation factor deficiency; J98.11 Atelectasis; Z68.42 Body mass index [BMI] 45.0-49.9, adult; L03.115 Cellulitis of right lower limb; L03.116 Cellulitis of left lower limb; D61.818 Other pancytopenia; K86.1 Other chronic pancreatitis; K76.6 Portal hypertension; M48.56XA Collapsed vertebra, not elsewhere classified, lumbar region, initial encounter for fracture; E87.70 Fluid overload, unspecified; D69.6 Thrombocytopenia, unspecified; I10 Essential (primary) hypertension; Z79.899 Other long term (current) drug therapy; E80.6 Other disorders of bilirubin metabolism; D75.89 Other specified diseases of blood and blood-forming organs; N50.89 Other specified disorders of the male genital organs; K57.90 Diverticulosis of intestine, part unspecified, without perforation or abscess without bleeding; E87.6 Hypokalemia; I73.9 Peripheral vascular disease, unspecified; R79.89 Other specified abnormal findings of blood chemistry; K76.89 Other specified diseases of liver; R26.9 Unspecified abnormalities of gait and mobility; I87.8 Other specified disorders of veins; E66.01 Morbid (severe) obesity due to excess calories
CPT/HCPCS: 36415; 71045-TC; 74181-TC; 80048-TC; 80053-TC; 80061-TC; 80076-TC; 81000-TC; 82105; 82140-TC; 82247-TC; 82248-TC; 82378; 82570-TC; 82728-TC; 83540-TC; 83735-TC; 83880; 84100-TC; 84155-TC; 84484-TC; 85025-TC; 85610-TC; 85730-TC; 86301; 86850-TC; 87081-TC; 93307-TC; A4216; G0378; J0330; J1940; J3010; J3370; J3490; J7030; J7050; J7060; P9017-BL; P9047; Q9966; Q9967

== ENCOUNTER 2020-04-13 21:33 | Inpatient (IN) | payer MEDICARE ==
[~2020-04-13] VITALS: Ht 175.3 cm; Wt 127.0 kg
[~2020-04-13 21:33] MED LIST: LACT10SO PO; RIFA550T PO; SPIR25TA6 PO
--- NOTE | 2020-04-13 21:43 | NUR ---
marcelina 102 from home for c/o BLE edema , - SOB. pt was jusrt discharged from [facility] on the . pt was placed on a monitor . VSS. will cont to monitor ,
[2020-04-13 22:02] LABS: EOSINOPHILS % (AUTO) 7.7 % (0.0-6.0); HEMATOCRIT 39 % (39-51); HEMOGLOBIN 13.6 g/dL (13.5-17.5); LYMPHOCYTES # (AUTO) 0.9 /CMM (0.8-4.8); LYMPHOCYTES % (AUTO) 20.5 % (20.0-44.0); MEAN CORPUSCULAR HGB CONC 35 g/dl (31.0-36.0); MEAN CORPUSCULAR VOLUME 117 fL (80-96); MONOCYTES # (AUTO) 0.7 /CMM (0.1-1.30); MONOCYTES % (AUTO) 14.6 % (2.0-12.0); NEUTROPHILS # (AUTO) 2.5 /CMM (1.8-8.9); NEUTROPHILS % (AUTO) 56.2 % (43.0-81.0); WHITE BLOOD COUNT (AUTO) 4.5 K/uL (4.3-11.0)
--- NOTE | 2020-04-13 22:11 | NUR ---
BEL PABLO (FRIEND)
[2020-04-13 22:25] LABS: PLATELET COUNT (AUTO) 78 /CMM (150-450)
[2020-04-13 22:45] LABS: CALCIUM, SERUM 9.2 mg/dL (8.5-10.1); CREATININE 1.1 mg/dL (0.6-1.3); POTASSIUM 3.3 mmol/L (3.5-5.1)
[2020-04-13 22:58] LABS: ALBUMIN 2.4 g/dL (3.4-5.0); BILIRUBIN,DIRECT 2.5 mg/dL (0.0-0.2); BILIRUBIN,TOTAL 5.7 mg/dL (0.2-1.0); TOTAL PROTEIN, SERUM 6.1 g/dL (6.4-8.2)
--- NOTE | 2020-04-13 23:35 | NUR ---
COVID SWAB COLLECTED AND SENT TO LAB
--- NOTE | 2020-04-13 23:42 | NUR ---
Patient is resting comfortably in bed with eyes closed. Easily aroused. VSS. WILL CONT TO MONITOR ,
--- NOTE | 2020-04-13 23:44 | NUR ---
MAGADLENA ZHONG HOSPITALIST AT BED SIDE
[2020-04-14] MEDS ORDERED: Z GUARD REMEDY 2 OZ OINT TP PRN
[2020-04-14] MEDS ORDERED: MAG HYDROX/AL HYDROX/SIMETH 30 ML UDC PO PRN
[2020-04-14] MEDS ORDERED: HYDROCODONE/APAP 5/325MG 1 EACH TABLET PO PRN
[2020-04-14] MEDS ORDERED: ONDANSETRON HCL/PF 4 MG/2 ML VIAL IVP PRN
[2020-04-14] MEDS ORDERED: ZOLPIDEM TARTRATE 5 MG TABLET PO PRN
[2020-04-14] MEDS ORDERED: BUMETANIDE INJ 0.25 MG/ML VIAL IV ONE
[2020-04-14] MEDS ORDERED: ACETAMINOPHEN 325 MG TABLET PO PRN
[2020-04-14] MEDS ORDERED: MAGNESIUM HYDROXIDE 30 ML UDC PO PRN
--- NOTE | 2020-04-14 00:30 | NUR ---
REC'D NEG COVID RESULTS. AWARE. CALLED NURSING SUP FOR BED
--- NOTE | 2020-04-14 00:46 | NUR ---
BED ASSIGNMENT 311-2
--- NOTE | 2020-04-14 01:03 | NUR ---
report given to Anne for GORDO
--- NOTE | 2020-04-14 01:30 | NUR ---
PT TRANSFERED PER ACLS PROTOCOL
[2020-04-14 01:35] VITALS: BP 151/79
--- NOTE | 2020-04-14 01:35 | NUR ---
ms pattern layout worker note received patient via gurney. patient ambulated to bed. steady gait. a/ox2-3, delayed speech, forgetful. tolerating room air. respirations are even and unlabored. no s/s sob noted. no c/o pain at this time. in no apparent distress. iv access in rac#18 patent and saline locked. state assessed properties director obtained vital signs and completed belongings list. initial physical assessment completed at this time. skin assessment completed, photos taken and placed in chart. bed is low and locked, hob elevated in semi fowlers, side rails up x2. call light within reach. will continue to monitor.
[2020-04-14] MEDS ORDERED: BUMETANIDE INJ 0.25 MG/ML VIAL ONE (02:28)
--- NOTE | 2020-04-14 02:38 | NUR ---
ms rn note administered bumex 1mg late d/t patient did not arrive to unit until 0135. bumex not stocked in either omni cell on floor. charge nurse pulled med from [facility]. will continue to monitor.
--- NOTE | 2020-04-14 04:45 | NUR ---
ms rn note obtained order for DVT chemical prophylaxis for lovenox 40mg SQ QDaily.
--- NOTE | 2020-04-14 07:00 | NUR ---
ms rn closing note patient in bed. a/ox2-3. tolerating room air. no c/o pain t/o shift. no distress. iv access maintained in rac#18 patent and saline locked. bed remains low and locked, hob elevated in semi fowlers, side rails up x2. call light within reach. will endorse to next shift.
--- NOTE | 2020-04-14 07:25 | NUR ---
MS RN NOTES PATIENT RECEIVED IN BED, AWAKE AND ORIENTED X 2-3. ON ROOM AIR WITH NO RESPIRATORY DISTRESS AT THIS TIME, WITH EVEN NON-LABORED BREATHING, AND NO SOB NOTED. IV ACCESS INTACT AND PATENT. SKIN WARM AND DRY TO TOUCH, BILATERAL LEG EDEMA PRESENT. SAFETY PRECAUTIONS IMPLEMENTED WITH BED LOCKED, BED IN THE LOWEST POSITION, BED ALARM ON, BILATERAL SIDE RAILS UP AND CALL WITHIN EASY REACH OF THE PATIENT. WILL CONTINUE TO MONITOR PATIENT.
[2020-04-14] MEDS ORDERED: PANTOPRAZOLE 40 MG TABLET.DR PO SCH (07:30)
[2020-04-14 08:00] VITALS: BP 117/80
[2020-04-14] MEDS: FUROSEMIDE 100 MG/10 ML VIAL IV SCH ×3 (09:20→16:31)
[2020-04-14] MEDS: POTASSIUM CHLORIDE 20 MEQ TAB.PRT.SR PO SCH ×3 (09:20→12:14)
--- NOTE | 2020-04-14 10:05 | NUR ---
med recon nurse notes: unable to obtain home meds due to pt unable to remember the meds, saying i take something for my blood pressure.
[2020-04-14] MEDS ORDERED: RIFAXIMIN 550 MG TABLET PO SCH (12:00)
[2020-04-14] MEDS ORDERED: ENOXAPARIN SODIUM 40 MG/0.4 ML DISP.SYRIN SQ SCH (13:00)
--- NOTE | 2020-04-14 13:13 | NUR ---
MS RN NOTES PATIENT SEEN BY DR. ARMANDO, STATES HE WILL FOLLOW UP WITH PATIENT'S NIECE AND WILL UPDATE ON PLAN OF CARE. NO NEW ORDERS AT THIS TIME AND WILL CONTINUE TO MONITOR PATIENT.
[2020-04-14 16:00] VITALS: BP 132/70
--- NOTE | 2020-04-14 19:34 | NUR ---
MS RN NOTES PATIENT IN BED, AWAKE AND ORIENTED X 2. ON ROOM AIR WITH NO RESPIRATORY DISTRESS AT THIS TIME, WITH EVEN NON-LABORED BREATHING, AND NO SOB NOTED. IV ACCESS INTACT AND PATENT. SKIN KEPT WARM AND DRY TO TOUCH, BILATERAL LEG EDEMA PRESENT. MET ALL OF PATIENT'S NEEDS. SAFETY PRECAUTIONS IMPLEMENTED WITH BED LOCKED, BED IN THE LOWEST POSITION, BED ALARM ON, BILATERAL SIDE RAILS UP AND CALL WITHIN EASY REACH OF THE PATIENT. PATIENT WILL BE TRANSFER TO [facility] FOR HIGHER LEVEL OF CARE, REPORT GIVEN TO SAMANTHA FLOWER RN. WILL ENDORSE PLAN OF CARE TO UPCOMING NURSE.
--- NOTE | 2020-04-14 19:45 | NUR ---
MS RN OPENING NOTES RECEIVED PATIENT FROM MORNING SHIFT ALERT AND ORIENTED X 2-3. VERBALLY RESPONSIVE AND ABLE TO FOLLOW DIRECTIONS. BREATHING REGULAR AND UNLABORED ON ROOM AIR. RIGHT AC G18 IV LINE INTACT AND FLUSHING WELL WITH NO BLEEDING OR S/S OF INFILTRATION NOTED. DENIES SUICIDAL IDEATION OR PAIN/DISCOMFORT AT THIS TIME. BED LOW AND LOCKED ON SEMI FOWLERS POSITION. CALL LIGHT IN REACH. WILL CONTINUE TO MONITOR.
--- NOTE | 2020-04-14 21:00 | NUR ---
MS CURING PRESS MAINTAINER NOTES PATIENT PICKED-UP BY [facility], ALERT AND ORIENTED X 2-3. AFEBRILE WITH NO S/S OF DISTRESS OBSERVED. REPORT GIVEN BY MORNING NURSE TO RN SAMANTHA FLOWER OF [facility], ADMITTING PHYSICIAN WILL BE . CALLED AND SPOKE TO KINZA SHERIDAN NOTIFIED OF TRANSFER. DISCHARGE PACKET WITH CD GIVEN TO EMT. BP 142/60 HR 83 RR 20 Temp 97.7 SPO2 97%
[2020-04-15] MEDS ORDERED: SPIRONOLACTONE 25 MG TABLET PO ONE (09:00)
[2020-04-15] MEDS ORDERED: LACTULOSE 10 G/15 ML UDC (PYXIS) PO SCH (09:00)
== END 2020-04-14 21:08 | disposition short-term general hospital (02) | DRG 432 ==
LOC: ER 21:33 → MED 04-14 01:05
PROVIDERS: ADMIT Nurse Practitioner Acute Care; ATTEND Student in an Organized Health Care Education/Training Program
DX: K74.60 Unspecified cirrhosis of liver (principal); E43 Unspecified severe protein-calorie malnutrition; K83.1 Obstruction of bile duct; K76.6 Portal hypertension; D61.818 Other pancytopenia; Z68.41 Body mass index [BMI] 40.0-44.9, adult; E87.70 Fluid overload, unspecified; K75.81 Nonalcoholic steatohepatitis (NASH); K76.89 Other specified diseases of liver; E66.01 Morbid (severe) obesity due to excess calories; Z98.890 Other specified postprocedural states; Z79.899 Other long term (current) drug therapy; D69.6 Thrombocytopenia, unspecified; Z74.09 Other reduced mobility; E87.6 Hypokalemia; I10 Essential (primary) hypertension; R59.9 Enlarged lymph nodes, unspecified
CPT/HCPCS: 36415; 71045-TC; 80048-TC; 80076-TC; 83880; 84484-TC; 85025-TC; 85730-TC; 87081-TC; G0378; J1650; J1940; J3490

== ENCOUNTER 2020-04-23 19:59 | Emergency (ER) | payer MEDICARE ==
[~2020-04-23] VITALS: Ht 175.3 cm; Wt 113.4 kg
--- NOTE | 2020-04-23 20:30 | NUR ---
PT AAOX4. BIBSELF C/O RUQ ABD PAIN SINCE THIS AFTERNOON. DENIES TRAUMA AND N/V. PT PALCED IN BED 9 ON MONITOR AND PULSE OX. VSS. NO ACUTE DISTRESS NOTED. MD AT BEDSIDE FOR EVAL. AWAITING ORDERS.
--- NOTE | 2020-04-23 20:38 | NUR ---
RAC 20G IV PLACED, LABS COLLECTED AND SENT TO LAB.
--- NOTE | 2020-04-23 20:40 | NUR ---
URINE COLLECTED AND SENT TO LAB
[2020-04-23] MEDS ORDERED: MORPHINE SULFATE INJ 4 MG/ML DISP.SYRIN ONE ×2 (20:55→22:20)
[2020-04-23] MEDS ORDERED: ONDANSETRON HCL/PF 4 MG/2 ML VIAL ONE ×2 (20:55→22:20)
[2020-04-23] MEDS ORDERED: IV NS 0.9% 500 ML BAG IV ONE (21:00)
[2020-04-23] MEDS ORDERED: ONDANSETRON HCL/PF 4 MG/2 ML VIAL IVP ONE (21:00)
[2020-04-23] MEDS ORDERED: MORPHINE SULFATE INJ 2 MG/ML DISP.SYRIN IV ONE ×2 (21:00→22:30)
[2020-04-23 21:11] LABS: BASOPHILS # (AUTO) 0.1 /CMM (0.0-0.2); BASOPHILS % (AUTO) 0.8 % (0.0-2.0); EOSINOPHILS % (AUTO) 4.9 % (0.0-6.0); HEMATOCRIT 37 % (39-51); HEMOGLOBIN 12.6 g/dL (13.5-17.5); LYMPHOCYTES # (AUTO) 0.8 /CMM (0.8-4.8); LYMPHOCYTES % (AUTO) 12.1 % (20.0-44.0); MEAN CORPUSCULAR HGB CONC 34 g/dl (31.0-36.0); MEAN CORPUSCULAR VOLUME 118 fL (80-96); MONOCYTES # (AUTO) 1.2 /CMM (0.1-1.30); MONOCYTES % (AUTO) 16.9 % (2.0-12.0); NEUTROPHILS # (AUTO) 4.6 /CMM (1.8-8.9); NEUTROPHILS % (AUTO) 65.3 % (43.0-81.0); PLATELET COUNT (AUTO) 113 /CMM (150-450); RED BLOOD CELL COUNT(AUTO) 3.11 MIL/uL (4.5-6.0)
[2020-04-23 21:16] LABS: APPEARANCE,URINE Clear (CLEAR); BILIRUBIN,URINE SMALL (NEGATIVE); BLOOD, URINE Negative Ery/uL (NEGATIVE); COLOR,URINE Other (YELLOW); KETONES,URINE Negative (NEGATIVE); LEUKOCYTE ESTERASE ,URINE Negative (NEGATIVE); NITRITE, URINE Negative (NEGATIVE); PH,URINE 5.5 (5.0-8.0); PROTEIN,URINE Negative (NEGATIVE); UGLUCOSE Negative (NEGATIVE)
--- NOTE | 2020-04-23 21:30 | NUR ---
Note undone in EDM - 04/23/20 at 2153 by EVICTOR PT AAOX4. BIBSELF C/O RUQ ABD PAIN SINCE THIS AFTERNOON. DENIES TRAUMA AND N/V. PT PALCED IN BED 9 ON MONITOR AND PULSE OX. VSS. NO ACUTE DISTRESS NOTED. MD AT BEDSIDE FOR EVAL. AWAITING ORDERS.
[2020-04-23 21:31] LABS: CALCIUM, SERUM 7.7 mg/dL (8.5-10.1); CARBON DIOXIDE 26 mmol/L (21-32); CHLORIDE 104 mmol/L (98-107); CREATININE 1.2 mg/dL (0.6-1.3); GLUCOSE 243 mg/dL (74-106); POTASSIUM 3.8 mmol/L (3.5-5.1); SODIUM SERUM 135 mmol/L (136-145); UREA NITROGEN, BLOOD 15 mg/dL (7-18)
[2020-04-23 21:39] LABS: ALANINE AMINOTRANSFERASE 84 U/L (12-78); ALKALINE PHOSPHATASE 320 U/L (46-116); ASPARTATE AMINOTRANSFERASE 114 U/L (15-37); BILIRUBIN,DIRECT 2.4 mg/dL (0.0-0.2); BILIRUBIN,TOTAL 4.7 mg/dL (0.2-1.0); LIPASE 160 U/L (73-393); TOTAL PROTEIN, SERUM 5.8 g/dL (6.4-8.2)
[2020-04-23 21:40] LABS: BACTERIA,URINE Few /HPF (None Seen); RBC,URINE 0-2 /HPF (0-2); SQUAMOUS EPITHELIAL CELL,UR Few /HPF (None Seen); WBC,URINE 0-2 /HPF (0-3)
[2020-04-23 21:41] LABS: CALCIUM OXALATE CRYSTALS,UR Few /HPF (None Seen)
[2020-04-23] MEDS ORDERED: IOHEXOL-300 100 ML VIAL IV ONE (21:47)
--- NOTE | 2020-04-23 21:49 | NUR ---
BROUGHT TO CT
--- NOTE | 2020-04-23 22:05 | NUR ---
BROUGHT BACK FROM CT, STATING HAS PAIN. WILL LET MD KNOW.
[2020-04-23 22:14] LABS: BAND % (MANUAL) 1 % (0.0-5.0); EOSINOPHILS % (MANUAL) 4 % (0-4); LYMPHOCYTES % (MANUAL) 16 % (16-48); MONOCYTES % (MANUAL) 7 % (0-11.0); NEUTROPHILS % (MANUAL) 72 (42-76)
--- NOTE | 2020-04-23 22:16 | NUR ---
PER MD, VERBAL ORDER 4MG IVP MORPHINE AND 4MG IVP ZOFRAN XNOW
[2020-04-23] MEDS ORDERED: ONDANSETRON HCL/PF 4 MG/2 ML VIAL IV ONE (22:30)
[2020-04-23 22:33] VITALS: BP 127/69
--- NOTE | 2020-04-23 22:33 | NUR ---
XRAY AT BEDSIDE
--- NOTE | 2020-04-23 23:13 | NUR ---
PER MD PT WILL BE ADMITTED FOR LIVER MASS AND ABD PAIN.
--- NOTE | 2020-04-23 23:14 | NUR ---
AWAITING COVID SWAB
[2020-04-24] MEDS ORDERED: MORPHINE SULFATE INJ 2 MG/ML DISP.SYRIN IV ONE ×2 (00:30→04:00)
[2020-04-24] MEDS ORDERED: ONDANSETRON HCL/PF 4 MG/2 ML VIAL IV ONE (00:30)
[2020-04-24] MEDS ORDERED: MORPHINE SULFATE INJ 4 MG/ML DISP.SYRIN ONE ×2 (00:33→03:36)
[2020-04-24] MEDS ORDERED: ONDANSETRON HCL/PF 4 MG/2 ML VIAL ONE (00:33)
[2020-04-24] MEDS ORDERED: PIPERACILLIN /TAZOBACTAM 3.375 G VIAL IV ONE ×2 (00:39→06:22)
--- NOTE | 2020-04-24 00:40 | NUR ---
FATIMAH JAMES - DIAZ UPDATED REGARDING PT CONDITION AND DISPOSITION
[2020-04-24] MEDS ORDERED: PIPERACILLIN /TAZOBACTAM 3.375 G in IV D5W 50 ML IV SCH (01:00)
--- NOTE | 2020-04-24 02:41 | NUR ---
Patient is resting comfortably in bed with eyes closed. Easily aroused. VSS.
--- NOTE | 2020-04-24 04:56 | NUR ---
PT ACCEPTED TO [facility] BY DR COCHRAN. ROOM 1209. # FOR REPORT [phone]. [facility] ETA 0700.
--- NOTE | 2020-04-24 06:39 | NUR ---
TRIED GIVING REPORT FOR PATIENT. I WAS TOLD TO CALL BACK AFTER 7AM.
--- NOTE | 2020-04-24 07:12 | NUR ---
REPORT GIVEN TO MORNING NURSE AND TRANSFER.
--- NOTE | 2020-04-24 08:10 | NUR ---
REPORT GIVEN TO EMT FOR PT TRANSFER TO [facility].
== END 2020-04-24 08:18 | disposition short-term general hospital (02) ==
LOC: ER 19:59
DX: R16.0 Hepatomegaly, not elsewhere classified (principal); R10.11 Right upper quadrant pain; K74.60 Unspecified cirrhosis of liver; I10 Essential (primary) hypertension; R18.8 Other ascites; K76.6 Portal hypertension; Z79.899 Other long term (current) drug therapy
CPT/HCPCS: 36415; 71045; 74177; 80048; 80076; 81001; 83690; 84484; 85025; 87426; 93005; 96365; 96375; 96376 ×2; 99285; J2270 ×4; J2405 ×3; J2543 ×3; J7040; J7060; Q9967; 81000-TC